=== PATIENT | female | born 1980 | race Caucasian/White ===

== ENCOUNTER 2017-03-22 16:08 | Emergency (ER) | payer MEDICAID ==
[2017-03-22] MEDS: ACETAMINOPHEN 500 MG TAB PO (20:31)
[2017-03-22 20:32] LABS: URINE BLOOD (Dip) POC 2+ (NEGATIVE); URINE GLUCOSE (Dip) POC Negative (NEGATIVE); URINE KETONES (Dip) POC Negative (NEGATIVE); URINE LEUKOCYTE EST (Dip) POC 1+ (NEGATIVE); URINE NITRITE (Dip) POC Negative (NEGATIVE); URINE TOTAL PROTEIN POC Negative (NEGATIVE)
== END 2017-03-22 22:02 | disposition home or self-care (01) ==
LOC: FTE 16:08
DX: N39.0 Urinary tract infection, site not specified (principal)
CPT/HCPCS: 81003; 99283